=== PATIENT | female | born 1950 | race Asian ===

== ENCOUNTER 2017-09-29 11:17 | Outpatient (CLI) | payer OTHER | END 2017-09-29 17:13 | disposition home or self-care (01) | LOC: SMA 11:17 | PROVIDERS: ATTEND Family Medicine | DX: Z12.31 Encounter for screening mammogram for malignant neoplasm of breast (principal) | CPT/HCPCS: G0202 ==

== ENCOUNTER 2018-12-13 09:50 | Outpatient (CLI) | payer OTHER | END 2018-12-13 18:46 | disposition home or self-care (01) | LOC: SMA 09:50 | PROVIDERS: ATTEND Family Medicine | DX: Z12.31 Encounter for screening mammogram for malignant neoplasm of breast (principal) | CPT/HCPCS: 77067 ==

== ENCOUNTER 2022-02-22 14:00 | Outpatient (CLI) | payer OTHER | END 2022-02-22 20:38 | disposition home or self-care (01) | LOC: SMA 14:00 | PROVIDERS: ATTEND Internal Medicine | DX: R92.2 Inconclusive mammogram (principal); N64.89 Other specified disorders of breast; R59.0 Localized enlarged lymph nodes; I70.90 Unspecified atherosclerosis | CPT/HCPCS: 77066 ==